=== PATIENT | male | born 1950 | race Caucasian/White ===

== ENCOUNTER 2024-06-20 07:25 | Day surgery (SDC) | payer MEDICARE ==
[~2024-06-20] VITALS: Ht 166 cm; Wt 66.5 kg
[2024-06-20] VITALS (14 sets, daily range): BP systolic 115–158; BP diastolic 72–93
[~2024-06-20 07:25] MED LIST: ATOR40TA PO; FINASTERIDE1 MG PO; Lactated Ringer's 1,000 ML IV SCH; propofoL 20 ML IV ONE
--- NOTE | 2024-06-20 08:21 | NUR ---
History, Chart, Medications and Allergies reviewed before start of procedure. Patient up to Ambulate independently. Gait steady. Pre-Op teaching done. Pt verbalizes understanding. Patient confirms NPO status and agrees with scheduled surgery. Patient States Post-Procedure ride home has been arranged.
[2024-06-20] MEDS ORDERED: Benzocaine Oral Spray 0.5ML UD ONE (08:34)
--- NOTE | 2024-06-20 08:45 | NUR ---
06/20/24 0845 Amy Paz HISTORY, CHART, MEDICATIONS AND ALLERGIES REVIEWED BEFORE START OF PROCEDURE. PATIENT CONFIRMS NPO STATUS AND AGREES WITH SCHEDULED PROCEDURE. 3-LEAD EKG REVIEWED WITH PHYSICIAN PRIOR TO START OF PROCEDURE. MONITOR INTACT WITH CONTINUOUS PULSE OXIMETRY,CAPNOGRAPHY, 3-LEAD EKG, INTERMITTENT BP. SUPPLEMENTAL O2 TO BE TITRATED THROUGHOUT PROCEDURE TO MAINTAIN O2 SATURATION ABOVE 90%. PATIENT DETERMINED TO BE ASA APPROPRIATE FOR PROPOFOL SEDATION PRIOR TO START OF PROCEDURE BY DR. DOCKERY
--- NOTE | 2024-06-20 09:38 | NUR ---
Discharge instructions reviewed with patient. Patient verbalizes understanding. Copy given to patient to take home. Patient States Post-Procedure ride home has been arranged. Discharged via wheelchair to private car for ride home.
== END 2024-06-20 09:39 | disposition home or self-care (01) ==
LOC: ORSCMMR 07:25 → ORD 08:30 → ORSCMMR 08:30
PROVIDERS: Internal Medicine Gastroenterology
PROC: 0DB68ZX Excision of Stomach, Via Natural or Artificial Opening Endoscopic, Diagnostic (ICD-10-PCS; principal; 2024-06-20 08:30)
PROC: 0DB98ZX Excision of Duodenum, Via Natural or Artificial Opening Endoscopic, Diagnostic (ICD-10-PCS; principal; 2024-06-20 08:30)
PROC: 0DB58ZX Excision of Esophagus, Via Natural or Artificial Opening Endoscopic, Diagnostic (ICD-10-PCS; principal; 2024-06-20 08:30)
PROC: 0DB48ZX Excision of Esophagogastric Junction, Via Natural or Artificial Opening Endoscopic, Diagnostic (ICD-10-PCS; principal; 2024-06-20 08:30)
DX: R10.12 Left upper quadrant pain (principal); R63.4 Abnormal weight loss; K57.30 Diverticulosis of large intestine without perforation or abscess without bleeding; E78.00 Pure hypercholesterolemia, unspecified; Z79.899 Other long term (current) drug therapy
CPT/HCPCS: 88305; 88313; 88341; 88342; A9270; J2704; J7120

== ENCOUNTER 2025-08-12 12:45 | Observation (INO) | payer OTHER ==
[~2025-08-12] VITALS: Ht 167.6 cm; Wt 59.0 kg
[~2025-08-12 12:45] MED LIST changes: +ASPIR 8181 M1 PO; +CLOP75 PO; +FINA5 PO; -FINASTERIDE1 MG PO; -Lactated Ringer's 1,000 ML IV SCH; -propofoL 20 ML IV ONE
[2025-08-12] MEDS ORDERED: CLON.5 PO (13:11)
[2025-08-12] MEDS ORDERED: Vitamin D1000 UNI1 PO (13:11)
[2025-08-12] MEDS ORDERED: MELA3 PO (13:11)
[2025-08-12] MEDS ORDERED: TRAM50 PO (13:12)
[2025-08-12] MEDS ORDERED: TAMS.4ER PO (13:12)
[2025-08-12] MEDS ORDERED: EXELON TOP (13:13)
[2025-08-12 13:23] LABS: Source, Urine Clean Catch
[2025-08-12 13:24] LABS: BASOPHILS ABSOLUTE AUTO 0.05 K/mm3 (0.00-0.23); BASOPHILS PERCENT AUTO 1 % (0-2); EOSINOPHILS ABSOLUTE AUTO 0.03 K/mm3 (0.00-0.68); EOSINOPHILS PERCENT AUTO 0 % (0-6); Hematocrit 36.8 % (37.0-53.0); Hemoglobin 12.8 g/dL (13.5-17.5); IMMATURE GRAN ABSOLUTE AUTO 0.02 K/mm3 (0.00-0.10); IMMATURE GRAN PERCENT AUTO 0 % (0-1); LYMPHOCYTES ABSOLUTE AUTO 1.73 K/mm3 (0.84-5.20); LYMPHOCYTES PERCENT AUTO 22 % (21-46); MONOCYTES ABSOLUTE AUTO 0.55 K/mm3 (0.16-1.47); MONOCYTES PERCENT AUTO 7 % (4-13); Mean Corpuscular HGB Conc 34.8 g/dL (31.5-36.5); Mean Corpuscular Volume 93 fL (80-100); NEUTROPHILS ABSOLUTE AUTO 5.65 K/mm3 (1.96-9.15); NEUTROPHILS PERCENT AUTO 71 % (41-73); NRBC ABSOLUTE 0.00 K/mm3 (0.00-0.02); NRBC Auto 0.0 /100 WBC (0.0-0.2); Platelet Count 236 K/mm3 (150-400); RDW Coefficient Variation 12.1 % (11.7-14.2); RDW Standard Deviation 42.1 fL (35.1-46.3)
[2025-08-12 13:25] LABS: Bilirubin, Urine Neg (Neg); Color, Urine Yellow (P-Yellow); Glucose Qualitative, Urine Neg (Neg); Ketones, Urine Neg (Neg); Leukocyte Esterase, Urine Neg (Neg); Protein, Urine 1+ (Neg); Specific Gravity, Urine 1.020 (1.003-1.022); Urobilinogen, Urine NORM (Normal)
[2025-08-12 13:47] LABS: Alanine Aminotransfer (ALT/SGP 37.0 U/L (12-78); Albumin, Blood 3.6 g/dL (3.4-5.0); Albumin/Globulin Ratio 1.1 (0.8-1.8); Anion Gap 6.0 mmol/L (3-11); Aspartate Aminotrans (AST/SGOT 52.0 U/L (12-37); Bilirubin, Total 1.0 mg/dL (0.1-1.0); Blood Urea Nitrogen 18.0 mg/dL (8-24); CO2, Blood 28.0 mmol/L (21-32); Calcium, Blood 9.0 mg/dL (8.5-10.1); Chloride, Blood 107.0 mmol/L (98-108); Creatinine, Blood 0.59 mg/dL (0.60-1.20); Globulin, Blood 3.2 g/dL (2.2-4.0); Glucose, Blood 96.0 mg/dL (70-99); Magnesium, Blood 2.4 mg/dL (1.6-2.4); Potassium, Blood 3.9 mmol/L (3.5-5.5); Sodium, Blood 137.0 mmol/L (136-145); Total Protein, Blood 6.8 g/dL (6.4-8.2)
[2025-08-12] MEDS ORDERED: LORazepam 2 MG/ML 1ML Injection IV ONE (21:25)
[2025-08-13] MEDS ORDERED: LORazepam 2 MG/ML 1ML Injection IV ONE (04:35)
[2025-08-13] MEDS ORDERED: Ondansetron HCl 2 MG / ML 2ML Vial IV PRN (19:10)
[2025-08-13] MEDS ORDERED: FLU VACC TS2025(65UP)/MF59C/PF 45 MCG/0.5 ML SYRINGE IM SCH (19:20)
[2025-08-13 22:31] VITALS: BP 114/66
[2025-08-14 04:06] VITALS: BP 90/61
[2025-08-14 04:25] VITALS: BP 107/67
--- NOTE | 2025-08-14 04:41 | NUR ---
SHIFT SUMMARY PT ARRIVED FROM THE ER AROUND [id number]. PT ALERT TO SELF AND CONFUSED. 1:1 SITTER AT BEDSIDE D/T IMPULSIVNESS. PT ABLE TO TAKE MOST NIGHT TIME MEDICATONS WITH COAXING AND IN APPLESAUSE. PT ABLE TO SLEEP MOST OF THE NIGHT. VSS. BED ALARM ON. BED IN LOWEST POSITION AND CALL LIGHT IN REACH.
[2025-08-14 04:58] LABS: BASOPHILS ABSOLUTE AUTO 0.05 K/mm3 (0.00-0.23); BASOPHILS PERCENT AUTO 1 % (0-2); EOSINOPHILS ABSOLUTE AUTO 0.04 K/mm3 (0.00-0.68); EOSINOPHILS PERCENT AUTO 0 % (0-6); Hematocrit 36.8 % (37.0-53.0); Hemoglobin 12.6 g/dL (13.5-17.5); IMMATURE GRAN ABSOLUTE AUTO 0.02 K/mm3 (0.00-0.10); IMMATURE GRAN PERCENT AUTO 0 % (0-1); LYMPHOCYTES ABSOLUTE AUTO 1.65 K/mm3 (0.84-5.20); LYMPHOCYTES PERCENT AUTO 15 % (21-46); MONOCYTES ABSOLUTE AUTO 0.85 K/mm3 (0.16-1.47); MONOCYTES PERCENT AUTO 8 % (4-13); Mean Corpuscular HGB Conc 34.2 g/dL (31.5-36.5); Mean Corpuscular Volume 95 fL (80-100); NEUTROPHILS ABSOLUTE AUTO 8.44 K/mm3 (1.96-9.15); NEUTROPHILS PERCENT AUTO 76 % (41-73); NRBC ABSOLUTE 0.00 K/mm3 (0.00-0.02); NRBC Auto 0.0 /100 WBC (0.0-0.2); Platelet Count 223 K/mm3 (150-400); RDW Coefficient Variation 12.4 % (11.7-14.2); RDW Standard Deviation 42.8 fL (35.1-46.3)
[2025-08-14 05:37] LABS: Alanine Aminotransfer (ALT/SGP 36.0 U/L (12-78); Albumin, Blood 3.3 g/dL (3.4-5.0); Albumin/Globulin Ratio 1.1 (0.8-1.8); Anion Gap 6.0 mmol/L (3-11); Aspartate Aminotrans (AST/SGOT 39.0 U/L (12-37); Bilirubin, Total 0.9 mg/dL (0.1-1.0); Blood Urea Nitrogen 30.0 mg/dL (8-24); CO2, Blood 29.0 mmol/L (21-32); Calcium, Blood 9.0 mg/dL (8.5-10.1); Chloride, Blood 105.0 mmol/L (98-108); Creatinine, Blood 1.21 mg/dL (0.60-1.20); Globulin, Blood 3.0 g/dL (2.2-4.0); Glucose, Blood 106.0 mg/dL (70-99); Magnesium, Blood 2.4 mg/dL (1.6-2.4); Potassium, Blood 3.9 mmol/L (3.5-5.5); Sodium, Blood 136.0 mmol/L (136-145); Total Protein, Blood 6.3 g/dL (6.4-8.2)
[2025-08-14] MEDS ORDERED: Enoxaparin 40 MG/0.4 ML SYR SC SCH (09:00)
[2025-08-14 09:26] VITALS: BP 141/88
[2025-08-14 16:01] VITALS: BP 136/83
--- NOTE | 2025-08-14 17:45 | NUR ---
SHIFT SUMMARY PT A&O TO SELF/PERSON ONLY AND CONFUSED, VSS, BEDRIDDEN, TOLERATING MINIMAL PO, VOIDING, AND DENIED PAIN. AT BEDSIDE T/O SHIFT ASSISTING W/ CARE. PT WORKED W/ PHYSICAL THERAPY, BUT DID NOT TOLERATE IT WELL. SEE THERAPY NOTE. AGITATION MANAGED PER EMAR. CALL LIGHT WITHIN REACH AND BED ALARM ON FOR SAFETY.
[2025-08-14 19:51] VITALS: BP 118/76
[2025-08-15 04:34] VITALS: BP 101/72
[2025-08-15 04:34] LABS: BASOPHILS ABSOLUTE AUTO 0.06 K/mm3 (0.00-0.23); BASOPHILS PERCENT AUTO 1 % (0-2); EOSINOPHILS ABSOLUTE AUTO 0.06 K/mm3 (0.00-0.68); EOSINOPHILS PERCENT AUTO 1 % (0-6); Hematocrit 38.0 % (37.0-53.0); Hemoglobin 12.8 g/dL (13.5-17.5); IMMATURE GRAN ABSOLUTE AUTO 0.03 K/mm3 (0.00-0.10); IMMATURE GRAN PERCENT AUTO 0 % (0-1); LYMPHOCYTES ABSOLUTE AUTO 2.03 K/mm3 (0.84-5.20); LYMPHOCYTES PERCENT AUTO 19 % (21-46); MONOCYTES ABSOLUTE AUTO 0.85 K/mm3 (0.16-1.47); MONOCYTES PERCENT AUTO 8 % (4-13); Mean Corpuscular HGB Conc 33.7 g/dL (31.5-36.5); Mean Corpuscular Volume 95 fL (80-100); NEUTROPHILS ABSOLUTE AUTO 7.67 K/mm3 (1.96-9.15); NEUTROPHILS PERCENT AUTO 72 % (41-73); NRBC ABSOLUTE 0.00 K/mm3 (0.00-0.02); NRBC Auto 0.0 /100 WBC (0.0-0.2); Platelet Count 231 K/mm3 (150-400); RDW Coefficient Variation 12.4 % (11.7-14.2); RDW Standard Deviation 43.3 fL (35.1-46.3)
--- NOTE | 2025-08-15 04:52 | NUR ---
SHIFT SUMMARY PT ALERT TO SELF. CONFUSED. SOME ANXIETY NOTED BUT ABLE TO BE CALMED WITH REASURANCE. ABLE TO TAKE PILLS CRUSHED WITH APPLESAUCE. SLEPT MOST OF THE NIGHT. VSS. REPOSITIONED T/O NIGHT. BED ALARM ON. BED IN LOWEST POSITION AND CALL LIGHT IN REACH.
[2025-08-15 05:14] LABS: Anion Gap 7.0 mmol/L (3-11); Blood Urea Nitrogen 34.0 mg/dL (8-24); CO2, Blood 28.0 mmol/L (21-32); Calcium, Blood 8.9 mg/dL (8.5-10.1); Chloride, Blood 106.0 mmol/L (98-108); Creatinine, Blood 0.77 mg/dL (0.60-1.20); Glucose, Blood 119.0 mg/dL (70-99); Potassium, Blood 4.3 mmol/L (3.5-5.5); Sodium, Blood 137.0 mmol/L (136-145)
[2025-08-15 07:33] VITALS: BP 123/63
[2025-08-15] MEDS ORDERED: IBUP200 PO (14:29)
[2025-08-15] MEDS ORDERED: ASCO500 PO (14:29)
[2025-08-15] MEDS ORDERED: Alph-E-Mixed400 UNIT PO (14:29)
[2025-08-15 15:38] VITALS: BP 120/67
[2025-08-15 20:09] VITALS: BP 147/88
[2025-08-16 04:06] VITALS: BP 116/78
--- NOTE | 2025-08-16 04:25 | NUR ---
SHIFT SUMMARY PATIENT ADMITTED FOR GENERALIZED WEAKNESS. PATIENT ALERT AND ORIENTED TO SELF. PATIENT HAS HX OF DEMENTIA AND PARKINSONS. PATIENT CONFUSED AT THE START OF SHIFT AND CALLING FOR PEOPLE WALKING BY TO COME IN AND HELP HIM. PATIENT THROWING PILLOWS AND CALL LIGHT ONTO THE FLOOR AND TRYING TO GET UP OUT OF BED. PATIENT REORIENTED TO ROOM AND REASSURED OF SAFETY. CALL LIGHT PLACED IN REACH. BED RAILS UP X3. BED IN LOWEST POSITION WITH BED ALARM ON FOR SAFETY. CALL LIGTH PLACED IN REACH.
[2025-08-16 08:02] VITALS: BP 128/68
[2025-08-16 15:41] VITALS: BP 111/76
--- NOTE | 2025-08-16 17:10 | NUR ---
NO CHANGE IN MENTATION, MORE ALERT TODAY, PATIENT TO STAY THROUGH THE WEEKEND,, PATIENT CONTINUES TO BE CONFUSED AND FORGETFUL, ALERT AND ORIENTED, TO SELF AND ONLY, PATIENT CONITNUALLY YELLS OUT HELP AND HAS STATED HE WANTS SOMEONE IN THE ROOM WITH HIM ALL THE TIME, BED ALARM ALL, VISITS DAILY, CALL LIGHT WITH IN REACH
--- NOTE | 2025-08-16 17:39 | NUR ---
PATIENTS AGGITATION THIS EVEN INCREASING, UNABLE TO REDIRECT OR CONSOLE PATIENT, BED ALARM ON, MONITORING FOR AGITATION, THROUGHIN WATER OFF BEDSIDE TABLE TO THE FLOOR, REORIENTING PATIENT, PATIENT UNABLE TO BE REORIENTED OR DIRECTED
[2025-08-16 20:34] VITALS: BP 129/86
--- NOTE | 2025-08-16 21:39 | NUR ---
PATIENT ALERT SOMETIMES TO NAME ONLY. DENIES PAIN. LUNGS CLEAR. INC OF BOWEL AND BLADDER WITH BRIEF ON. PATIENT RESTLESS, REFUSED DINNER, DIFFICULT TO CONVENCE TO TAKE MEDS, REFUSED SOME. PATIENT NOW SLEEPING
[2025-08-17 04:12] VITALS: BP 145/98
[2025-08-17 07:50] VITALS: BP 138/79
--- NOTE | 2025-08-17 17:03 | NUR ---
PATIENT CONTINUED TO BE OPPOSITIONAL, PARANOID, AND VERY CONFUSED. UNABLE TO REDIRECT OR CONSOLE. PATIENT REFUSED AM MEDICATION, SHERRILL HELPED ADMINISTER AM MEDICATIONS, PATIENT TO POSSIBLE BE CHANGED TO COMFORT CARE PRIOR TO DISCHARGE, BED ALARM ON, CALL LIGHT WITH IN REACH
[2025-08-17 20:32] VITALS: BP 111/66
[2025-08-18 05:16] VITALS: BP 113/70
[2025-08-18 07:28] VITALS: BP 121/83
[2025-08-18] MEDS ORDERED: Acetaminophen650 M1 PO (12:03)
[2025-08-18] MEDS ORDERED: DOCU100 PO (12:03)
[2025-08-18] MEDS ORDERED: SEROQUEL100 MG PO (12:04)
--- NOTE | 2025-08-18 12:04 | NUR ---
PLAN IS FOR PT TO D/C HOME WITH [facility] TODAY. CM IS WORKING ON DISCHARGE COORDINATION, EQUIPMENT AND TRANSPORTATION. SPOUSE REPORTS PT HAS A POLST. SHE WILL BRING POLST FORM IN PRIOR TO PT TRANSPORT HOME. CM NOTIFIED.
[2025-08-18] MEDS ORDERED: Seroquel Xr50 MG PO (12:05)
--- NOTE | 2025-08-18 12:48 | NUR ---
DISCHARGE PT DISCAHRGED HOME c HOSPICE. EQUIPMENT DELIEVERED PRIOR TO PT TRANSPORT PER SPOUSE. DISCHARGE INSTRUCTIONS REVIEWED WITH SPOUSE AND PT. NO NEW MEDICATIONS ORDERED/FAXED. HOSPICE TO MANAGE MEDICATIONS/MEW RX. PT TRANSFERED BY [facility]ET TO [facility] AND TAKEN BY [facility]. PT TOLERATED TRANSFER WELL. NO IV ACCESS TO BE REMOVED. SPOUSE REPORTS HAVING ALL BELONGINGS. WRITTEN MATERIAL ON END OF LIFE CARE PROVIDED.
== END 2025-08-18 12:47 | disposition hospice, home (50) ==
LOC: ER 12:45 → MEDS 12:46 → ER 08-13 12:46 → MEDS 08-13 12:46 → ENPENDDIS 08-18 11:00 → MEDS 08-18 12:47
PROVIDERS: Internal Medicine; Student in an Organized Health Care Education/Training Program; ADMIT Student in an Organized Health Care Education/Training Program
DX: G45.9 Transient cerebral ischemic attack, unspecified (principal); S20.211A Contusion of right front wall of thorax, initial encounter; M54.50 Low back pain, unspecified; R53.1 Weakness; R26.89 Other abnormalities of gait and mobility; G47.00 Insomnia, unspecified; M48.56XA Collapsed vertebra, not elsewhere classified, lumbar region, initial encounter for fracture; E78.5 Hyperlipidemia, unspecified; G20.A1 Parkinson's disease without dyskinesia, without mention of fluctuations; F02.80 Dementia in other diseases classified elsewhere, unspecified severity, without behavioral disturbance, psychotic disturbance, mood disturbance, and anxiety; Z91.81 History of falling; Z79.02 Long term (current) use of antithrombotics/antiplatelets; Z79.82 Long term (current) use of aspirin; Z79.899 Other long term (current) drug therapy; W19.XXXA Unspecified fall, initial encounter
CPT/HCPCS: 36415; 70450; 71101; 72100; 72125; 80048; 80053; 83735; 85025; 93005; 93010; 96372; 96374; 96376; 97110; 97162; 97166; 97530; 97530-CQ; 99285-25; A6590; A9270; G0378; J1650; J2060